=== PATIENT | female | born 1955 | race Caucasian/White ===

== ENCOUNTER → 2019-03-09 | Outpatient (CLI) | payer BC ==
[2011-04-09 12:58] VITALS: BP 129/89
[2019-03-09 16:02] LABS: EOS # 0.1 (0.04-0.40); EOS % 0.9 % (1.0-5.0); HEMATOCRIT 44.9 % (37.0-47.0); HEMOGLOBIN 14.3 g/dL (12.5-16.0); LYMPH# 1.6 (1.50-4.00); MEAN CELL VOLUME 95 fl (78-100); MEAN CORPUSCULAR HEMOGLOBIN 30 pg (27-31); MEAN CORPUSCULAR HGB CONC 32 g/dL (33-37); MEAN PLATELET VOLUME 9.6 fl (7.4-10.4); MONO # 0.4 (0.20-0.80); NEU # 4.8 (1.40-6.50); PLATELET COUNT 250 K/mm3 (130-400); RED BLOOD COUNT 4.73 M/mm3 (4.10-5.30); RED CELL DISTRIBUTION WIDTH 14.1 % (11.5-14.5); WHITE BLOOD COUNT 6.9 K/mm3 (4.8-10.8)
[2019-03-09 16:28] LABS: ALBUMIN 4.4 g/dL (3.4-4.8); POTASSIUM 3.7 mmol/L (3.5-5.1)
[2019-03-09 16:29] LABS: CALCIUM 9.3 mg/dL (8.3-10.5)
[2019-03-09 16:30] LABS: TOTAL PROTEIN 7.3 g/dL (6.2-8.1)
[2019-03-09 16:32] LABS: TOTAL BILIRUBIN 1.8 mg/dL (0.2-1.2)
== END ==
LOC: LAB 15:39
PROVIDERS: Family Medicine
DX: Z00.00 Encounter for general adult medical examination without abnormal findings (principal); E78.5 Hyperlipidemia, unspecified; E03.9 Hypothyroidism, unspecified; E55.9 Vitamin D deficiency, unspecified

== ENCOUNTER → 2019-04-13 | Outpatient (CLI) | payer BC ==
[2011-04-09 12:58] VITALS: BP 129/89
== END ==
LOC: LAB 10:13
PROVIDERS: Family Medicine
DX: E03.9 Hypothyroidism, unspecified (principal); E27.40 Unspecified adrenocortical insufficiency

== ENCOUNTER → 2019-07-13 | Outpatient (CLI) | payer BC ==
[2011-04-09 12:58] VITALS: BP 129/89
[2019-07-13 10:48] LABS: EOS # 0.1 (0.04-0.40); EOS % 1.9 % (1.0-5.0); HEMATOCRIT 44.5 % (37.0-47.0); HEMOGLOBIN 13.9 g/dL (12.5-16.0); LYMPH# 2.4 (1.50-4.00); MEAN CELL VOLUME 97 fl (78-100); MEAN CORPUSCULAR HEMOGLOBIN 30 pg (27-31); MEAN CORPUSCULAR HGB CONC 31 g/dL (33-37); MEAN PLATELET VOLUME 9.3 fl (7.4-10.4); MONO # 0.5 (0.20-0.80); NEU # 3.7 (1.40-6.50); PLATELET COUNT 241 K/mm3 (130-400); RED CELL DISTRIBUTION WIDTH 13.8 % (11.5-14.5); WHITE BLOOD COUNT 6.8 K/mm3 (4.8-10.8)
[2019-07-13 11:19] LABS: POTASSIUM 3.7 mmol/L (3.5-5.1)
[2019-07-13 11:21] LABS: CALCIUM 9.6 mg/dL (8.3-10.5)
[2019-07-13 11:22] LABS: TOTAL PROTEIN 7.2 g/dL (6.2-8.1)
[2019-07-13 11:24] LABS: TOTAL BILIRUBIN 0.7 mg/dL (0.2-1.2)
[2019-07-14 05:04] LABS: T3 FREE 3.4 pg/mL (())
== END ==
LOC: LAB 10:32
PROVIDERS: Family Medicine
DX: Z00.00 Encounter for general adult medical examination without abnormal findings (principal); E27.40 Unspecified adrenocortical insufficiency; E03.9 Hypothyroidism, unspecified; E55.9 Vitamin D deficiency, unspecified

== ENCOUNTER → 2019-11-17 | Outpatient (CLI) | payer BC ==
[2011-04-09 12:58] VITALS: BP 129/89
== END ==
LOC: LAB 08:30
DX: R68.83 Chills (without fever) (principal); R05 Cough; R51 Headache; R19.7 Diarrhea, unspecified; R09.81 Nasal congestion; R68.89 Other general symptoms and signs; Z20.828 Contact with and (suspected) exposure to other viral communicable diseases

== ENCOUNTER → 2020-01-11 | Outpatient (CLI) | payer BC ==
[2011-04-09 12:58] VITALS: BP 129/89
== END ==
LOC: LAB 09:17
DX: J02.9 Acute pharyngitis, unspecified (principal); M79.10 Myalgia, unspecified site; R09.81 Nasal congestion; Z20.828 Contact with and (suspected) exposure to other viral communicable diseases

== ENCOUNTER → 2020-01-31 | Outpatient (CLI) | payer BC ==
[2011-04-09 12:58] VITALS: BP 129/89
[2020-02-01 04:44] LABS: T3 FREE 2.7 pg/mL (())
== END ==
LOC: LAB 10:13
PROVIDERS: Family Medicine
DX: E03.9 Hypothyroidism, unspecified (principal)

== ENCOUNTER → 2020-02-08 | Outpatient (CLI) | payer BC ==
[2011-04-09 12:58] VITALS: BP 129/89
== END ==
LOC: MAMMO 13:36
DX: Z13.820 Encounter for screening for osteoporosis (principal); M85.80 Other specified disorders of bone density and structure, unspecified site

== ENCOUNTER → 2020-04-10 | Outpatient (CLI) | payer BC ==
[2011-04-09 12:58] VITALS: BP 129/89
== END ==
LOC: LAB 10:46
DX: U07.1 COVID-19 (principal)

== ENCOUNTER → 2020-04-21 | Outpatient (CLI) | payer SELFPAY ==
[~2020-04-21] MED LIST: CORTEF5 M1; LASIX20 M1; LEXAPRO5 MG PO; SYNTHROID25 MCG; TOPAMAX25 MG
[2020-04-21 16:04] LABS: EOS % 0.4 % (1.0-5.0); HEMATOCRIT 47.3 % (37.0-47.0); HEMOGLOBIN 15.4 g/dL (12.5-16.0); MEAN CELL VOLUME 90 fl (78-100); MEAN CORPUSCULAR HEMOGLOBIN 29 pg (27-31); MEAN CORPUSCULAR HGB CONC 33 g/dL (33-37); MEAN PLATELET VOLUME 10.1 fl (7.4-10.4); MONO # 0.5 (0.20-0.80); NEU # 3.8 (1.40-6.50); PLATELET COUNT 195 K/mm3 (130-400); RED BLOOD COUNT 5.23 M/mm3 (4.10-5.30); WHITE BLOOD COUNT 5.3 K/mm3 (4.8-10.8)
[2020-04-21 16:14] LABS: ALBUMIN 3.9 g/dL (3.4-4.8); POTASSIUM 3.7 mmol/L (3.5-5.1)
[2020-04-21 16:15] VITALS: BP 146/86
[2020-04-21 16:16] LABS: TOTAL PROTEIN 7.7 g/dL (6.2-8.1)
[2020-04-21 16:18] LABS: TOTAL BILIRUBIN 1.3 mg/dL (0.2-1.2)
== END ==
LOC: AMSURD 15:33
PROVIDERS: Physician Assistant
DX: K44.9 Diaphragmatic hernia without obstruction or gangrene (principal); U07.1 COVID-19
CPT/HCPCS: J7030

== ENCOUNTER → 2020-05-09 | Outpatient (CLI) | payer BC ==
[2020-04-21 16:15] VITALS: BP 146/86
[2020-05-09 12:19] LABS: EOS # 0.1 (0.04-0.40); EOS % 2.7 % (1.0-5.0); HEMATOCRIT 41.9 % (37.0-47.0); HEMOGLOBIN 13.1 g/dL (12.5-16.0); LYMPH# 1.8 (1.50-4.00); MEAN CELL VOLUME 94 fl (78-100); MEAN CORPUSCULAR HEMOGLOBIN 29 pg (27-31); MEAN CORPUSCULAR HGB CONC 31 g/dL (33-37); MEAN PLATELET VOLUME 9.5 fl (7.4-10.4); MONO # 0.4 (0.20-0.80); NEU # 2.2 (1.40-6.50); PLATELET COUNT 202 K/mm3 (130-400); RED BLOOD COUNT 4.45 M/mm3 (4.10-5.30); RED CELL DISTRIBUTION WIDTH 13.8 % (11.5-14.5); WHITE BLOOD COUNT 4.5 K/mm3 (4.8-10.8)
[2020-05-09 21:41] LABS: T3 FREE 2.8 pg/mL (1.7-3.7)
== END ==
LOC: LAB 11:58
PROVIDERS: Family Medicine
DX: E03.9 Hypothyroidism, unspecified (principal); E27.40 Unspecified adrenocortical insufficiency; E55.9 Vitamin D deficiency, unspecified

== ENCOUNTER → 2020-09-14 | Outpatient (CLI) | payer BC | LOC: LAB 16:38 | DX: Z20.822 Contact with and (suspected) exposure to COVID-19 (principal) ==

== ENCOUNTER → 2021-01-04 | Outpatient (CLI) | payer BC ==
[2021-01-04 14:19] LABS: PH-URINE 6.5 (5.0 - 8.0); URINE APPEARANCE HAZY; URINE BILIRUBIN NEGATIVE (NEGATIVE); URINE BLOOD 50 ery/uL (NEGATIVE); URINE COLOR YELLOW; URINE GLUCOSE NEGATIVE (NEGATIVE); URINE KETONE NEGATIVE (NEGATIVE); URINE LEUKOCYTE ESTERASE 1+ (NEGATIVE); URINE NITRATE NEGATIVE (NEGATIVE); URINE PROTEIN(semi-quant) 1+ mg/dL (NEGATIVE); URINE UROBILINOGEN NORMAL (NORMAL)
[2021-01-04 14:20] LABS: URINE MUCUS PRESENT (NOT PRESENT); URINE WBC 16-30 /hpf (0-3)
== END ==
LOC: LAB 13:00
PROVIDERS: Family Medicine
DX: R31.29 Other microscopic hematuria (principal)

== ENCOUNTER → 2021-01-22 | Outpatient (CLI) | payer BC | LOC: LAB 15:29 | DX: M79.641 Pain in right hand (principal); M79.642 Pain in left hand ==

== ENCOUNTER → 2021-02-04 | Outpatient (CLI) | payer BC ==
[~2021-02-04] MED LIST changes: +BUMEX 1MG TA1 MG/TA1 PO; +CETIRIZINE HCL10 MG PO; +CORTEF20 MG PO; -CORTEF5 M1; +DEXAMETHASONE1 MG PO; +ESTRADIOL; +ESTRIOL; +FAMOTIDINE40 M1 PO; +GOOD NEIGHBOR P20 M1 PO; +HYDROCORTISONE 10MG PO; +LIOTHYRONINE SO5 MCG PO; +MELOXICAM15 MG PO; +NORCO 325 MG-51 TA1 PO; +POTASSIUM CHLO20 ME3 PO; +PROGESTERONE200 MG PO; -TOPAMAX25 MG; +TOPAMAX50 M1 PO; +VITAMIN C500 M6 PO; +VITAMIN D375 MCG PO; +ZOFRAN ODT4 MG PO
[2021-02-04 10:59] LABS: ALBUMIN 3.7 g/dL (3.4-4.8)
[2021-02-04 11:00] LABS: POTASSIUM 3.6 mmol/L (3.5-5.1)
[2021-02-04 11:01] LABS: CALCIUM 9.3 mg/dL (8.3-10.5)
[2021-02-04 11:02] LABS: TOTAL PROTEIN 6.9 g/dL (6.2-8.1)
[2021-02-04 11:04] LABS: TOTAL BILIRUBIN 1.1 mg/dL (0.2-1.2)
== END ==
LOC: LAB 10:35
PROVIDERS: Family Medicine
DX: E27.40 Unspecified adrenocortical insufficiency (principal); R60.9 Edema, unspecified

== ENCOUNTER 2021-02-06 10:37 | Emergency (ER) | payer BC ==
[~2021-02-06] VITALS: Ht 160 cm; Wt 115.9 kg
[~2021-02-06 10:37] MED LIST changes: -BUMEX 1MG TA1 MG/TA1 PO; -CETIRIZINE HCL10 MG PO; -CORTEF20 MG PO; -DEXAMETHASONE1 MG PO; -ESTRADIOL; -ESTRIOL; -FAMOTIDINE40 M1 PO; -GOOD NEIGHBOR P20 M1 PO; -LIOTHYRONINE SO5 MCG PO; -MELOXICAM15 MG PO; -NORCO 325 MG-51 TA1 PO; -POTASSIUM CHLO20 ME3 PO; -PROGESTERONE200 MG PO; -VITAMIN C500 M6 PO; -VITAMIN D375 MCG PO; -ZOFRAN ODT4 MG PO
[2021-02-06] MEDS ORDERED: BUMEX 1MG TA1 MG/TA1 PO (11:20)
[2021-02-06] MEDS ORDERED: LIOTHYRONINE SO5 MCG PO (11:22)
[2021-02-06] MEDS ORDERED: CORTEF20 MG PO (11:24)
[2021-02-06] MEDS ORDERED: POTASSIUM CHLO20 ME3 PO (11:25)
[2021-02-06] MEDS ORDERED: MELOXICAM15 MG PO (11:25)
[2021-02-06] MEDS ORDERED: DEXAMETHASONE1 MG PO (11:27)
[2021-02-06 11:31] LABS: BASO # 0.01 K/mm3 (0.02-0.10); EOS # 0.02 K/mm3 (0.04-0.40); EOS % 0.2 % (1.0-5.0); HEMATOCRIT 43.7 % (37.0-47.0); HEMOGLOBIN 13.6 g/dL (12.5-16.0); LYMPH# 0.93 K/mm3 (1.50-4.00); MEAN CELL VOLUME 100 fl (78-100); MEAN CORPUSCULAR HEMOGLOBIN 31 pg (27-31); MEAN CORPUSCULAR HGB CONC 31 g/dL (33-37); MEAN PLATELET VOLUME 9.3 fl (7.4-10.4); MONO # 0.39 K/mm3 (0.20-0.80); NEU # 8.63 K/mm3 (1.40-6.50); PLATELET COUNT 223 K/mm3 (130-400); RED BLOOD COUNT 4.37 M/mm3 (4.10-5.30); RED CELL DISTRIBUTION WIDTH 12.4 % (11.5-14.5)
[2021-02-06 11:34] LABS: ALBUMIN 3.7 g/dL (3.4-4.8)
[2021-02-06] MEDS ORDERED: CETIRIZINE HCL10 MG PO (11:35)
[2021-02-06 11:36] LABS: CALCIUM 9.3 mg/dL (8.3-10.5)
[2021-02-06] MEDS ORDERED: ESTRIOL (11:36)
[2021-02-06] MEDS ORDERED: FAMOTIDINE40 M1 PO (11:36)
[2021-02-06] MEDS ORDERED: GOOD NEIGHBOR P20 M1 PO (11:36)
[2021-02-06] MEDS ORDERED: PROGESTERONE200 MG PO (11:36)
[2021-02-06] MEDS ORDERED: ESTRADIOL (11:36)
[2021-02-06 11:37] LABS: TOTAL PROTEIN 6.8 g/dL (6.2-8.1)
[2021-02-06 11:39] LABS: TOTAL BILIRUBIN 0.7 mg/dL (0.2-1.2)
[2021-02-06] MEDS ORDERED: VITAMIN D375 MCG PO (11:47)
[2021-02-06] MEDS ORDERED: VITAMIN C500 M6 PO (11:47)
[2021-02-06 12:01] LABS: URINE COLOR BROWN
[2021-02-06 12:02] LABS: URINE APPEARANCE HAZY; URINE BILIRUBIN NEGATIVE (NEGATIVE); URINE BLOOD 250 ery/uL (NEGATIVE); URINE GLUCOSE NEGATIVE (NEGATIVE); URINE KETONE NEGATIVE (NEGATIVE); URINE LEUKOCYTE ESTERASE TRACE (NEGATIVE); URINE NITRATE NEGATIVE (NEGATIVE); URINE PROTEIN(semi-quant) 2+ mg/dL (NEGATIVE); URINE UROBILINOGEN NORMAL (NORMAL)
[2021-02-06] MEDS ORDERED: NORCO 325 MG-51 TA1 PO (13:16)
[2021-02-06] MEDS ORDERED: ZOFRAN ODT4 MG PO (13:16)
[2021-02-06 13:48] VITALS: BP 165/93
== END 2021-02-06 13:55 | disposition home or self-care (01) ==
LOC: ED 10:37
PROVIDERS: Physician Assistant
DX: N20.0 Calculus of kidney (principal); E03.9 Hypothyroidism, unspecified; E66.01 Morbid (severe) obesity due to excess calories; Z68.42 Body mass index [BMI] 45.0-49.9, adult; Z79.890 Hormone replacement therapy
CPT/HCPCS: J1885; J2405; J7030

== ENCOUNTER → 2021-02-28 | Outpatient (CLI) | payer BC ==
[~2021-02-28] MED LIST changes: +BUMEX 1MG TA1 MG/TA1 PO; +CETIRIZINE HCL10 MG PO; +CORTEF20 MG PO; +DEXAMETHASONE1 MG PO; +ESTRADIOL; +ESTRIOL; +FAMOTIDINE40 M1 PO; +GOOD NEIGHBOR P20 M1 PO; +LIOTHYRONINE SO5 MCG PO; +MELOXICAM15 MG PO; +NORCO 325 MG-51 TA1 PO; +POTASSIUM CHLO20 ME3 PO; +PROGESTERONE200 MG PO; +VITAMIN C500 M6 PO; +VITAMIN D375 MCG PO; +ZOFRAN ODT4 MG PO
== END ==
LOC: LAB 19:35
DX: R05.9 Cough, unspecified (principal); Z20.822 Contact with and (suspected) exposure to COVID-19

== ENCOUNTER → 2021-03-14 | Outpatient (CLI) | payer BC | LOC: LAB 12:20 → RAD 12:20 | DX: K44.9 Diaphragmatic hernia without obstruction or gangrene (principal); R05.9 Cough, unspecified ==

== ENCOUNTER → 2021-05-06 | Outpatient (CLI) | payer BC | LOC: RAD 12:22 | DX: K44.9 Diaphragmatic hernia without obstruction or gangrene (principal) ==

== ENCOUNTER 2021-06-03 22:04 | Emergency (ER) | payer MEDICARE, BC ==
[~2021-06-03] VITALS: Ht 160 cm; Wt 130.5 kg
[2021-06-03 22:37] LABS: BASO # 0.03 K/mm3 (0.02-0.10); EOS # 0.09 K/mm3 (0.04-0.40); HEMATOCRIT 42.5 % (37.0-47.0); HEMOGLOBIN 13.7 g/dL (12.5-16.0); LYMPH# 1.04 K/mm3 (1.50-4.00); MEAN CELL VOLUME 94 fl (78-100); MEAN CORPUSCULAR HEMOGLOBIN 30 pg (27-31); MEAN CORPUSCULAR HGB CONC 32 g/dL (33-37); MEAN PLATELET VOLUME 9.5 fl (7.4-10.4); MONO # 0.52 K/mm3 (0.20-0.80); PLATELET COUNT 254 K/mm3 (130-400); RED BLOOD COUNT 4.53 M/mm3 (4.10-5.30); RED CELL DISTRIBUTION WIDTH 13.5 % (11.5-14.5); WHITE BLOOD COUNT 8.6 K/mm3 (4.8-10.8)
[2021-06-03 22:45] LABS: ALBUMIN 3.7 g/dL (3.4-4.8); POTASSIUM 3.1 mmol/L (3.5-5.1)
[2021-06-03 22:47] LABS: CALCIUM 8.9 mg/dL (8.3-10.5)
[2021-06-03 22:48] LABS: TOTAL PROTEIN 6.8 g/dL (6.2-8.1)
[2021-06-03] MEDS ORDERED: DEXAMETHASONE0.5 M1 PO (23:15)
[2021-06-03] MEDS ORDERED: ARMOUR THYROID240 MG PO (23:16)
[2021-06-03] MEDS ORDERED: POLY-IRON 150150 MG PO (23:17)
[2021-06-03 23:20] LABS: URINE COLOR YELLOW
[2021-06-03 23:21] LABS: URINE APPEARANCE HAZY; URINE BILIRUBIN NEGATIVE (NEGATIVE); URINE BLOOD NEGATIVE (NEGATIVE); URINE GLUCOSE NEGATIVE (NEGATIVE); URINE KETONE NEGATIVE (NEGATIVE); URINE LEUKOCYTE ESTERASE NEGATIVE (NEGATIVE); URINE MUCUS PRESENT (NOT PRESENT); URINE NITRATE NEGATIVE (NEGATIVE); URINE PROTEIN(semi-quant) TRACE (NEGATIVE); URINE UROBILINOGEN NORMAL (NORMAL)
[2021-06-03] MEDS ORDERED: DEXAMETHASONE1.5 M1 PO (23:42)
[2021-06-04 00:10] VITALS: BP 142/78
== END 2021-06-04 00:10 | disposition home or self-care (01) ==
LOC: ED 22:04
PROVIDERS: Nurse Practitioner
DX: E27.40 Unspecified adrenocortical insufficiency (principal); E87.6 Hypokalemia; E66.01 Morbid (severe) obesity due to excess calories; Z68.43 Body mass index [BMI] 50.0-59.9, adult
CPT/HCPCS: J1720; J2405; J7030

== ENCOUNTER → 2021-06-07 | Outpatient (CLI) | payer MEDICARE, BC ==
[~2021-06-07] MED LIST changes: +ARMOUR THYROID240 MG PO; +DEXAMETHASONE0.5 M1 PO; +DEXAMETHASONE1.5 M1 PO; +POLY-IRON 150150 MG PO
[2021-06-07 10:37] LABS: ALBUMIN 3.8 g/dL (3.4-4.8); POTASSIUM 3.4 mmol/L (3.5-5.1)
[2021-06-07 10:38] LABS: CALCIUM 9.5 mg/dL (8.3-10.5)
[2021-06-07 10:39] LABS: TOTAL PROTEIN 6.8 g/dL (6.2-8.1)
[2021-06-07 10:41] LABS: TOTAL BILIRUBIN 1.1 mg/dL (0.2-1.2)
[2021-06-07 12:18] LABS: URINE APPEARANCE HAZY; URINE BILIRUBIN NEGATIVE (NEGATIVE); URINE BLOOD NEGATIVE (NEGATIVE); URINE COLOR YELLOW; URINE GLUCOSE NEGATIVE (NEGATIVE); URINE KETONE NEGATIVE (NEGATIVE); URINE LEUKOCYTE ESTERASE TRACE (NEGATIVE); URINE NITRATE NEGATIVE (NEGATIVE); URINE PROTEIN(semi-quant) TRACE (NEGATIVE); URINE UROBILINOGEN NORMAL (NORMAL)
[2021-06-07 12:19] LABS: URINE MUCUS PRESENT (NOT PRESENT)
[2021-06-08 00:46] LABS: FOLLICLE STIMULATING HORMONE 11.1 mIU/mL (()); LUTENIZING HORMONE 7.7 mIU/mL (())
[2021-06-08 00:47] LABS: PROLACTIN AMS 10.7 ng/mL (5.2-26.5)
[2021-06-08 04:07] LABS: T3 TOTAL 98 ng/dL (35-193)
[2021-06-08 05:36] LABS: TESTOSTERONE <13 ng/dL (13-36)
[2021-06-08 09:19] LABS: CORTISOL RANDOM <1 ug/dL (3-20)
[2021-06-13 21:46] LABS: ADRENOCORTICOTROPIC HORMONE <5 pg/mL (5-27)
== END ==
LOC: RAD 06-03 13:00
PROVIDERS: Family Medicine
DX: C73 Malignant neoplasm of thyroid gland (principal); Z90.89 Acquired absence of other organs

== ENCOUNTER → 2021-10-01 | Outpatient (CLI) | payer MEDICARE, BC ==
[~2021-10-01] MED LIST changes: +CYANOCOBAL1000 MCG/1 IM; +FEXOFENADINE H180 M1 PO; +FLONASE ALLERG9.9 ML NS; -GOOD NEIGHBOR P20 M1 PO; +METHYLCOBALAMIN1 GM MC; +METHYLFOLATE PO; +OMEPRAZOLE40 MG PO; +PROAIR HFA0.09 MG/AC IH; +VIT D PO; +ZINC50 M4 PO
== END ==
LOC: RAD 11:21
DX: K80.80 Other cholelithiasis without obstruction (principal)

== ENCOUNTER → 2021-10-08 | Outpatient (CLI) | payer MEDICARE, BC | LOC: LAB 15:39 | DX: Z20.822 Contact with and (suspected) exposure to COVID-19 (principal) ==

== ENCOUNTER 2021-10-19 21:41 | Emergency (ER) | payer MEDICARE, BC ==
[~2021-10-19] VITALS: Ht 160 cm; Wt 116.5 kg
[~2021-10-19 21:41] MED LIST changes: -CYANOCOBAL1000 MCG/1 IM; -FEXOFENADINE H180 M1 PO; -FLONASE ALLERG9.9 ML NS; -METHYLCOBALAMIN1 GM MC; -METHYLFOLATE PO; -PROAIR HFA0.09 MG/AC IH; -VIT D PO; -ZINC50 M4 PO
[2021-10-19] MEDS ORDERED: FEXOFENADINE H180 M1 PO (22:36)
[2021-10-19] MEDS ORDERED: FLONASE ALLERG9.9 ML NS (22:37)
[2021-10-19] MEDS ORDERED: VIT D PO (22:39)
[2021-10-19] MEDS ORDERED: METHYLFOLATE PO (22:41)
[2021-10-19] MEDS ORDERED: METHYLCOBALAMIN1 GM MC (22:42)
[2021-10-19] MEDS ORDERED: PROAIR HFA0.09 MG/AC IH (22:43)
[2021-10-19] MEDS ORDERED: CYANOCOBAL1000 MCG/1 IM (22:44)
[2021-10-19] MEDS ORDERED: ZINC50 M4 PO (22:46)
[2021-10-19 22:54] LABS: BASO # 0.03 K/mm3 (0.02-0.10); EOS # 0.03 K/mm3 (0.04-0.40); EOS % 0.4 % (1.0-5.0); HEMATOCRIT 40.3 % (37.0-47.0); HEMOGLOBIN 12.8 g/dL (12.5-16.0); LYMPH# 1.39 K/mm3 (1.50-4.00); MEAN CELL VOLUME 94 fl (78-100); MEAN CORPUSCULAR HEMOGLOBIN 30 pg (27-31); MEAN CORPUSCULAR HGB CONC 32 g/dL (33-37); MEAN PLATELET VOLUME 9.4 fl (7.4-10.4); MONO # 0.48 K/mm3 (0.20-0.80); NEU # 5.05 K/mm3 (1.40-6.50); PLATELET COUNT 264 K/mm3 (130-400); RED BLOOD COUNT 4.29 M/mm3 (4.10-5.30); RED CELL DISTRIBUTION WIDTH 12.4 % (11.5-14.5)
[2021-10-20 00:12] VITALS: BP 141/87
== END 2021-10-20 00:13 | disposition home or self-care (01) ==
LOC: ED 21:41
PROVIDERS: Family Medicine
DX: M94.0 Chondrocostal junction syndrome [Tietze] (principal); E66.01 Morbid (severe) obesity due to excess calories; Z68.42 Body mass index [BMI] 45.0-49.9, adult; Z88.6 Allergy status to analgesic agent; Z28.310 Unvaccinated for COVID-19

== ENCOUNTER → 2021-10-30 | Outpatient (CLI) | payer MEDICARE, BC ==
[~2021-10-30] MED LIST changes: +CYANOCOBAL1000 MCG/1 IM; +FEXOFENADINE H180 M1 PO; +FLONASE ALLERG9.9 ML NS; +METHYLCOBALAMIN1 GM MC; +METHYLFOLATE PO; +PROAIR HFA0.09 MG/AC IH; +VIT D PO; +ZINC50 M4 PO
[2021-10-30 08:26] LABS: ALBUMIN 3.6 g/dL (3.4-4.8); POTASSIUM 3.2 mmol/L (3.5-5.1)
[2021-10-30 08:27] LABS: CALCIUM 8.9 mg/dL (8.3-10.5)
[2021-10-30 08:29] LABS: TOTAL PROTEIN 6.5 g/dL (6.2-8.1)
[2021-10-30 08:30] LABS: TOTAL BILIRUBIN 0.9 mg/dL (0.2-1.2)
[2021-10-30 12:26] LABS: BASO # 0.03 K/mm3 (0.02-0.10); EOS # 0.11 K/mm3 (0.04-0.40); HEMOGLOBIN 13.1 g/dL (12.5-16.0); LYMPH# 1.73 K/mm3 (1.50-4.00); MEAN CELL VOLUME 94 fl (78-100); MEAN CORPUSCULAR HEMOGLOBIN 29 pg (27-31); MEAN CORPUSCULAR HGB CONC 31 g/dL (33-37); MEAN PLATELET VOLUME 10.4 fl (7.4-10.4); MONO # 0.55 K/mm3 (0.20-0.80); NEU # 3.14 K/mm3 (1.40-6.50); PLATELET COUNT 275 K/mm3 (130-400); RED BLOOD COUNT 4.45 M/mm3 (4.10-5.30); RED CELL DISTRIBUTION WIDTH 12.9 % (11.5-14.5); WHITE BLOOD COUNT 5.6 K/mm3 (4.8-10.8)
== END ==
LOC: RAD 07:48
PROVIDERS: Surgery
DX: K80.20 Calculus of gallbladder without cholecystitis without obstruction (principal)

== ENCOUNTER → 2022-01-29 | Outpatient (CLI) | payer MEDICARE, BC | LOC: LAB 08:15 | DX: R51.9 Headache, unspecified (principal); D50.9 Iron deficiency anemia, unspecified; R50.9 Fever, unspecified; B96.89 Other specified bacterial agents as the cause of diseases classified elsewhere; Z20.822 Contact with and (suspected) exposure to COVID-19 ==

== ENCOUNTER → 2022-04-08 | Outpatient (CLI) | payer MEDICARE, BC | LOC: LAB 08:11 | DX: E23.7 Disorder of pituitary gland, unspecified (principal); E27.40 Unspecified adrenocortical insufficiency; N63.10 Unspecified lump in the right breast, unspecified quadrant; E03.9 Hypothyroidism, unspecified ==

== ENCOUNTER → 2022-12-25 | Outpatient (CLI) | payer MEDICARE, BC | LOC: RAD 12-17 14:30 | DX: M81.0 Age-related osteoporosis without current pathological fracture (principal); M84.374A Stress fracture, right foot, initial encounter for fracture ==

== ENCOUNTER → 2023-03-27 | Outpatient (CLI) | payer MEDICARE, BC | LOC: RAD 15:15 | DX: R05.3 Chronic cough (principal) ==

== ENCOUNTER → 2023-05-20 | Outpatient (CLI) | payer MEDICARE, BC ==
[2023-05-20 09:06] LABS: BASO # 0.04 K/mm3 (0.02-0.10); EOS # 0.13 K/mm3 (0.04-0.40); EOS % 2.2 % (1.0-5.0); HEMATOCRIT 41.6 % (37.0-47.0); HEMOGLOBIN 13.3 g/dL (12.5-16.0); MEAN CELL VOLUME 97 fl (78-100); MEAN CORPUSCULAR HEMOGLOBIN 31 pg (27-31); MEAN CORPUSCULAR HGB CONC 32 g/dL (33-37); MEAN PLATELET VOLUME 9.9 fl (7.4-10.4); PLATELET COUNT 209 K/mm3 (130-400); RED BLOOD COUNT 4.28 M/mm3 (4.10-5.30); WHITE BLOOD COUNT 5.9 K/mm3 (4.8-10.8)
[2023-05-20 09:09] LABS: ALBUMIN 3.7 g/dL (3.4-4.8)
[2023-05-20 09:10] LABS: CALCIUM 9.1 mg/dL (8.3-10.5)
[2023-05-20 09:11] LABS: TOTAL PROTEIN 6.2 g/dL (6.2-8.1)
[2023-05-20 09:13] LABS: TOTAL BILIRUBIN 0.6 mg/dL (0.2-1.2)
[2023-05-20 22:11] LABS: CORTISOL, AM (0800) 7 ug/dL (3-20); T3 FREE 2.6 pg/mL (1.7-3.7)
== END ==
LOC: LAB 08:33
PROVIDERS: Nurse Practitioner
DX: E27.40 Unspecified adrenocortical insufficiency (principal); E55.9 Vitamin D deficiency, unspecified

== ENCOUNTER → 2023-07-17 | Outpatient (CLI) | payer MEDICARE, BC | LOC: LAB 11:42 | DX: S81.802D Unspecified open wound, left lower leg, subsequent encounter (principal) ==

== ENCOUNTER → 2023-10-21 | Outpatient (REF) | payer MEDICARE, BC | LOC: LAB 15:37 | DX: Z20.828 Contact with and (suspected) exposure to other viral communicable diseases (principal) ==

== ENCOUNTER → 2023-10-29 | Outpatient (CLI) | payer MEDICARE, BC ==
[2023-10-29 14:32] LABS: BASO # 0.02 K/mm3 (0.02-0.10); EOS # 0.11 K/mm3 (0.04-0.40); EOS % 1.5 % (1.0-5.0); HEMATOCRIT 43.1 % (37.0-47.0); HEMOGLOBIN 13.7 g/dL (12.5-16.0); LYMPH# 1.43 K/mm3 (1.50-4.00); MEAN CELL VOLUME 98 fl (78-100); MEAN CORPUSCULAR HEMOGLOBIN 31 pg (27-31); MEAN CORPUSCULAR HGB CONC 32 g/dL (33-37); MEAN PLATELET VOLUME 9.4 fl (7.4-10.4); MONO # 0.46 K/mm3 (0.20-0.80); NEU # 5.54 K/mm3 (1.40-6.50); PLATELET COUNT 207 K/mm3 (130-400); RED BLOOD COUNT 4.39 M/mm3 (4.10-5.30); RED CELL DISTRIBUTION WIDTH 13.1 % (11.5-14.5); WHITE BLOOD COUNT 7.6 K/mm3 (4.8-10.8)
[2023-10-29 14:38] LABS: CALCIUM 9.3 mg/dL (8.3-10.5)
[2023-10-29 14:39] LABS: TOTAL PROTEIN 6.9 g/dL (6.2-8.1)
[2023-10-29 14:41] LABS: TOTAL BILIRUBIN 0.7 mg/dL (0.2-1.2)
[2023-10-30 16:04] LABS: RESPIRATORY VIRUS PANEL-PCR AMS
== END ==
LOC: LAB 14:02
PROVIDERS: Nurse Practitioner
DX: R05.9 Cough, unspecified (principal); R50.9 Fever, unspecified

== ENCOUNTER → 2023-12-09 | Outpatient (CLI) | payer MEDICARE, BC ==
[2023-12-09 23:10] LABS: T3 FREE 2.3 pg/mL (1.7-3.7)
== END ==
LOC: LAB 10:23
PROVIDERS: Nurse Practitioner
DX: E03.9 Hypothyroidism, unspecified (principal)

== ENCOUNTER → 2024-02-22 | Outpatient (CLI) | payer MEDICARE, BC | LOC: LAB 16:11 | DX: N39.0 Urinary tract infection, site not specified (principal) ==

== ENCOUNTER → 2024-03-30 | Outpatient (REF) | payer MEDICARE, BC | LOC: LAB 09:20 → RAD 09:20 | DX: K46.9 Unspecified abdominal hernia without obstruction or gangrene (principal) ==